=== PATIENT | male | born 1945 | race Caucasian/White ===

== ENCOUNTER 2017-12-10 11:29 | Emergency (ER) | payer MEDICARE, BC ==
[2017-12-10] MEDS ORDERED: SODIUM CHLORIDE 0.9% 1,000 ML IV STA (12:15)
[2017-12-10 12:56] LABS: Basophils % (A) 1 %; Eosinophils # (A) 0.2 k/uL (0-0.7); Eosinophils % (A) 2 %; HCT 43.8 % (39.0-53.0); HGB 14.5 gm/dL (13.0-17.5); Lymphocytes # (A) 1.8 k/uL (1.0-4.8); Lymphocytes % (A) 23 %; MCH 27.9 pg (25.0-35.0); MCV 84.4 fL (80.0-100.0); Mean Platelet Volume 7.4; Monocytes # (A) 0.5 k/uL (0-1.0); Monocytes % (A) 7 %; Neutrophils # (A) 5.2 k/uL (1.3-7.7); Neutrophils % (A) 66 %; Platelet Count 164 k/uL (150-450); RBC 5.19 m/uL (4.30-5.90); RDW 12.8 % (11.5-15.5); WBC 7.8 k/uL (3.8-10.6)
[2017-12-10 13:02] LABS: Albumin 4.7 g/dL (3.5-5.0); Calcium 9.8 mg/dL (8.4-10.2); Magnesium 2.3 mg/dL (1.6-2.3); Potassium 4.9 mmol/L (3.5-5.1); Total Bilirubin 0.6 mg/dL (0.2-1.3); Total Protein 7.9 g/dL (6.3-8.2)
[2017-12-10 13:09] LABS: D-Dimer 0.43 mg/L FEU (<0.60); INR 1.1 (<1.2); Partial Thromboplastin Time 26.1 sec (22.0-30.0); Prothrombin Time 10.8 sec (9.0-12.0)
[2017-12-10 13:14] LABS: Creatine Kinase 206 U/L (55-170)
--- NOTE | 2017-12-10 13:19 | XR ---
EXAMINATION TYPE: XR chest 2V DATE OF EXAM: 12/10/2017 HISTORY: Chest Pain. REFERENCE: NONE. FINDINGS: The lungs are overinflated. The lungs are clear. Pleural space are clear. Heart size is upp er limits of normal. IMPRESSION: COPD.
[2017-12-10 13:26] LABS: Creatine Kinase MB 1.5 ng/mL (0.0-2.4); Troponin I <0.012 ng/mL (0.000-0.034)
--- NOTE | 2017-12-10 13:27 | ED ---
General Adult HPI - General Chief complaint: Fall Stated complaint: left rib pain from fall Time Seen by Provider: 12/10/17 12:09 Source: patient Mode of arrival: ambulatory Limitations: no limitations - History of Present Illness Initial comments: 72 years old male with a history of hyperlipidemia and hypertension fell 2 days ago and he hurt his chest on the left side him a he was in pain for sometime min pain went away then he developed the chest pain today after sneezing he said it was 10 over 10 he is not complaining about pain in the abdomen he is now complaining about pain in the left upper quadrant area and pain is actually has resolved now he is not short of breath does hurt when he takes a deep breath. No headaches no neck stiffness left-sided chest pain fellow couple days ago no abdominal pain no pain over the spleen or over the liver the abdominal pain no frequency urgency dysuria no symptoms of TIA or CVA - Related Data Home Medications Medication Instructions Recorded Confirmed Aspirin 81 mg PO HS 12/19/14 12/10/17 Metoprolol Tartrate [Metoprolol 50 mg PO QAM 12/19/14 12/10/17 Tartrate] Simvastatin [Simvastatin] 40 mg PO HS 12/19/14 12/10/17 clonazePAM [Clonazepam] 0.5 mg PO HS PRN 12/19/14 12/10/17 Acetaminophen Tab [Tylenol Tab] 325 mg PO Q4H PRN 12/10/17 12/10/17 Metoprolol Tartrate [Lopressor] 25 mg PO HS 12/10/17 12/10/17 Previous Rx's Medication Instructions Recorded oxyCODONE HCL/ACETAMINOPHEN 1 tab PO Q8HR PRN #15 tab 12/10/17 [Percocet 7.5-325 mg] Allergies Allergy/AdvReac Type Severity Reaction Status Date / Time Penicillins Allergy Rash/Hives Verified 12/10/17 12:28 Review of Systems ROS Statement: Those systems with pertinent positive or pertinent negative responses have been documented in the HPI. ROS Other: All systems not noted in ROS Statement are negative. 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", CPAP SETTING AT 12 History of Any Multi-Drug Resistant Organisms: None Reported Past Surgical History: Heart Catheterization, Orthopedic Surgery, Tonsillectomy Additional Past Surgical History / Comment(s): PALATE AND DEVIATED SEPTUM SURGERY Past Anesthesia/Blood Transfusion Reactions: No Reported Reaction Past Psychological History: No Psychological Hx Reported Smoking Status: Former smoker Past Alcohol Use History: Occasional Past Drug Use History: None Reported - Past Family History Father Family Medical History: Cancer Additional Family Medical History / Comment(s): BLADDER Brother(s) Family Medical History: Cancer Additional Family Medical History / Comment(s): PANCREATIC AND KIDNEY General Exam - General Exam Comments Initial Comments: General: The patient is awake and alert, in no distress, and does not appear acutely ill. Skin: Skin is warm and dry and no rashes or lesions are noted. Eye: Pupils are equal, round and reactive to light, extra-ocular movements are intact; there is normal conjunctiva bilaterally. Ears, nose, mouth and throat: There are moist mucous membranes and no oral lesions. Neck: The neck is supple, there is no tenderness or JVD. Cardiovascular: There is a regular rate and rhythm. No murmur, rub or gallop is appreciated. Respiratory: To auscultation bilateral, no wheezing no rhonchi no distress respiratory silver noticed Gastrointestinal: Soft, non-distended, non-tender abdomen without masses or organomegaly noted. There is no rebound or guarding present. Bowel sounds are unremarkable. Back: There is no tenderness to palpation in the midline. There is no obvious deformity. Musculoskeletal: Normal ROM, no tenderness, There is no pedal edema. There is no calf tenderness or swelling. No cords were appreciated. Neurological: CN II-XII intact, Cranial nerves III through XII are intact. There are no obvious motor or sensory deficits. Coordination appears grossly intact. Speech is normal. Psychiatric: Cooperative, appropriate mood & affect, normal judgment. Limitations: no limitations Course Vital Signs 12/10/17 12/10/17 12/10/17 11:53 12:17 12:40 Temperature 98.3 F Pulse Rate 57 L Respiratory 20 20 20 Rate Blood Pressure 158/72 O2 Sat by Pulse 94 L Oximetry 12/10/17 13:00 Temperature Pulse Rate 57 L Respiratory 20 Rate Blood Pressure 140/77 O2 Sat by Pulse 98 Oximetry Is reassessed, d-dimer, troponin, EKG are all unremarkable chest x-ray didn't show any displaced fracture of the abdomen is suspect nondisplaced injury or bruise to the rehab he was advised not to do any heavy lifting pushing pulling for the next few days and he be gone home on a Percocet for 3-4 days EKG Findings - EKG Comments: EKG Findings:: KG is normal sinus rhythm occasional PVC noticed ventricular rate is 64 AK interval is 164 QRS duration is 66 QT/QTc is 340/447 review of this EKG noticed some PVCs no ST elevation or ST depression noticed Medical Decision Making - Lab Data Result diagrams: 12/10/17 12:35 12/10/17 12:35 Lab Results 12/10/17 12/10/17 12/10/17 Range/Units 12:35 12:35 12:35 WBC 7.8 (3.8-10.6) k/uL RBC 5.19 (4.30-5.90) m/uL Hgb 14.5 (13.0-17.5) gm/dL Hct 43.8 (39.0-53.0) % MCV 84.4 (80.0-100.0) fL MCH 27.9 (25.0-35.0) pg MCHC 33.0 (31.0-37.0) g/dL RDW 12.8 (11.5-15.5) % Plt Count 164 (150-450) k/uL Neutrophils % 66 % Lymphocytes % 23 % Monocytes % 7 % Eosinophils % 2 % Basophils % 1 % Neutrophils # 5.2 (1.3-7.7) k/uL Lymphocytes # 1.8 (1.0-4.8) k/uL Monocytes # 0.5 (0-1.0) k/uL Eosinophils # 0.2 (0-0.7) k/uL Basophils # 0.0 (0-0.2) k/uL PT (9.0-12.0) sec INR (<1.2) APTT (22.0-30.0) sec D-Dimer (<0.60) mg/L FEU Sodium 143 (137-145) mmol/L Potassium 4.9 (3.5-5.1) mmol/L Chloride 103 (98-107) mmol/L Carbon Dioxide 27 (22-30) mmol/L Anion Gap 13 mmol/L BUN 23 H (9-20) mg/dL Creatinine 1.17 (0.66-1.25) mg/dL Est GFR (CKD-EPI)AfAm 72 (>60 ml/min/1.73 sqM) Est GFR (CKD-EPI)NonAf 62 (>60 ml/min/1.73 sqM) Glucose 91 (74-99) mg/dL Calcium 9.8 (8.4-10.2) mg/dL Magnesium 2.3 (1.6-2.3) mg/dL Total Bilirubin 0.6 (0.2-1.3) mg/dL AST 28 (17-59) U/L ALT 28 (21-72) U/L Alkaline Phosphatase 73 (38-126) U/L Total Creatine Kinase 206 H (55-170) U/L CK-MB (CK-2) 1.5 (0.0-2.4) ng/mL CK-MB (CK-2) Rel Index 0.7 Troponin I <0.012 (0.000-0.034) ng/mL Total Protein 7.9 (6.3-8.2) g/dL Albumin 4.7 (3.5-5.0) g/dL 12/10/17 Range/Units 12:35 WBC (3.8-10.6) k/uL RBC (4.30-5.90) m/uL Hgb (13.0-17.5) gm/dL Hct (39.0-53.0) % MCV (80.0-100.0) fL MCH (25.0-35.0) pg MCHC (31.0-37.0) g/dL RDW (11.5-15.5) % Plt Count (150-450) k/uL Neutrophils % % Lymphocytes % % Monocytes % % Eosinophils % % Basophils % % Neutrophils # (1.3-7.7) k/uL Lymphocytes # (1.0-4.8) k/uL Monocytes # (0-1.0) k/uL Eosinophils # (0-0.7) k/uL Basophils # (0-0.2) k/uL PT 10.8 (9.0-12.0) sec INR 1.1 (<1.2) APTT 26.1 (22.0-30.0) sec D-Dimer 0.43 (<0.60) mg/L FEU Sodium (137-145) mmol/L Potassium (3.5-5.1) mmol/L Chloride (98-107) mmol/L Carbon Dioxide (22-30) mmol/L Anion Gap mmol/L BUN (9-20) mg/dL Creatinine (0.66-1.25) mg/dL Est GFR (CKD-EPI)AfAm (>60 ml/min/1.73 sqM) Est GFR (CKD-EPI)NonAf (>60 ml/min/1.73 sqM) Glucose (74-99) mg/dL Calcium (8.4-10.2) mg/dL Magnesium (1.6-2.3) mg/dL Total Bilirubin (0.2-1.3) mg/dL AST (17-59) U/L ALT (21-72) U/L Alkaline Phosphatase (38-126) U/L Total Creatine Kinase (55-170) U/L CK-MB (CK-2) (0.0-2.4) ng/mL CK-MB (CK-2) Rel Index Troponin I (0.000-0.034) ng/mL Total Protein (6.3-8.2) g/dL Albumin (3.5-5.0) g/dL Disposition Clinical Impression: Chest wall pain Disposition: HOME SELF-CARE Instructions: Costochondritis (ED) Prescriptions: oxyCODONE HCL/ACETAMINOPHEN [Percocet 7.5-325 mg] 1 tab PO Q8HR PRN #15 tab PRN Reason: Pain Referrals: Brook Short MD [Primary Care Provider] - 1-2 days
[2017-12-10 14:46] VITALS: BP 149/71; PULSE 60; RESP 16; TEMP 96.9
== END 2017-12-10 14:45 | disposition home or self-care (01) ==
LOC: EC 11:29
DX: R07.89 Other chest pain (principal); R06.7 Sneezing; E78.5 Hyperlipidemia, unspecified; I10 Essential (primary) hypertension; G47.30 Sleep apnea, unspecified; Z99.89 Dependence on other enabling machines and devices; Z87.891 Personal history of nicotine dependence; Z79.82 Long term (current) use of aspirin; Z79.899 Other long term (current) drug therapy; Z88.0 Allergy status to penicillin; W01.0XXA Fall on same level from slipping, tripping and stumbling without subsequent striking against object, initial encounter; Y92.89 Other specified places as the place of occurrence of the external cause
CPT/HCPCS: 36415; 71046; 80053; 82550; 82553; 83735; 84484; 85025; 85379; 85610; 85730; 93005; 96360; 96361; 99284

== ENCOUNTER → 2018-12-21 | Outpatient (CLI) | payer MEDICARE, BC ==
--- NOTE | 2018-12-21 09:56 | US ---
EXAMINATION TYPE: US abdomen complete DATE OF EXAM: 12/21/2018 COMPARISON: NONE CLINICAL HISTORY: Z82.49 Family history of AAA. EXAM MEASUREMENTS: Liver Length: 15.4 cm Gallbladder Wall: 0.3 cm CBD: 0.2 cm Spleen: 11.6 cm Right Kidney: 11.5 x 4.6 x 4.8 cm Left Kidney: 10.8 x 5.6 x 5.1 cm Extensive midline bowel gas. Pancreas: Obscured by bowel gas Liver: portion of left lobe obscured by overlying bowel gas Gallbladder: wnl, somewhat obscured by overlying bowel gas Evidence for sonographic Ramos's sign: no CBD: wnl Spleen: wnl Right Kidney: No hydronephrosis or masses seen Left Kidney: Superior pole obscured by bowel gas Upper IVC: wnl Abd Aorta: no AAA, appears wnl IMPRESSION: Somewhat Limited exam secondary to overlying bowel gas demonstrates no definite acute pro cess.
== END | disposition home or self-care (01) ==
LOC: RADUSWWP 08:41
PROVIDERS: ATTEND Internal Medicine
DX: Z13.6 Encounter for screening for cardiovascular disorders (principal); Z82.49 Family history of ischemic heart disease and other diseases of the circulatory system
CPT/HCPCS: 76700

== ENCOUNTER 2019-10-29 13:21 | Emergency (ER) | payer MEDICARE, BC ==
[2019-10-29 13:29] VITALS: BP 143/80; PULSE 71; TEMP 97.8
[2019-10-29] MEDS ORDERED: DIPH,PERTUS(ACELL)TETVAC-LF 0.5 ML VIAL IM ONE (14:00)
[2019-10-29] MEDS ORDERED: LIDOCAINE 1% INJ 10MG/ML (20 ML MDV) SQ ONE (14:00)
--- NOTE | 2019-10-29 15:26 | CT ---
EXAMINATION TYPE: CT facial bones wo con DATE OF EXAM: 10/29/2019 COMPARISON: Pain nasal bone HISTORY: Nasal injury today with laceration CT DLP: 540.3 mGycm Automated exposure control for dose reduction was used. TECHNIQUE: CT scan of the sinuses is performed without contrast, axial images are obtained, coronal r eformatted images are also reviewed. FINDINGS: The paranasal sinuses including the frontal, ethmoid, sphenoid, and maxillary sinuses bila terally are well-aerated without abnormal opacification. The ostiomeatal complex is patent bilateral ly on the coronal images. Visualized portion of mastoid air cells show no abnormal opacification. The globes are intact bilate rally. Hypertrophic change of the vertebral column noted. There appears to be a nasal bone fracture with soft tissue edema. There is displacement of the latera l nasal bones on the right and a hairline fracture on the left. Correlation with a lateral view could BE obtained to assess the degree of depression. IMPRESSION: 1. Displaced nasal bone fracture with soft tissue edema.
[2019-10-29] MEDS ORDERED: ceFAZolin 1,000 MG VIAL (IM USE) IM STA (15:35)
--- NOTE | 2019-10-29 15:38 | ED ---
Wound/Laceration HPI - General Source: patient Mode of arrival: ambulatory Limitations: no limitations <Nisha Okeefe - Last Filed: 10/29/19 15:47> <Sloan Mendez - Last Filed: 10/29/19 16:09> - General Chief Complaint: Wound/Laceration Stated Complaint: nose injury Time Seen by Provider: 10/29/19 13:41 - History of Present Illness Initial Comments: 74-year-old male presenting today for chief complaint of fall with nasal injury. Patient states that he was in the [place] using a chainsaw to cut wood when he tripped over a branch falling onto the chain saw. He states that the chain was not moving. Patient sates he sustained a laceration to his nose. Patient states his nose is now swollen and tender he states he had nosebleed at the time. Patient states that has since subsided. Patient is concerned he may need laceration repair and have a possible fracture presents emergency department for further evaluation she denies any injury to the head directly, pain in the neck upper extremities lower extremities abdomen chest or back. Patient states the only area of tenderness is the nose. Patient unsure of his last tetanus. Remaining ROS (-). Denies nay other area of injury or complaints. (Nisha Okeefe) - Related Data Home Medications Medication Instructions Recorded Confirmed Aspirin 81 mg PO HS 12/19/14 12/10/17 Metoprolol Tartrate 50 mg PO QAM 12/19/14 12/10/17 Simvastatin 40 mg PO HS 12/19/14 12/10/17 clonazePAM [Clonazepam] 0.5 mg PO HS PRN 12/19/14 12/10/17 Acetaminophen Tab [Tylenol Tab] 325 mg PO Q4H PRN 12/10/17 12/10/17 Metoprolol Tartrate [Lopressor] 25 mg PO HS 12/10/17 12/10/17 Previous Rx's Medication Instructions Recorded oxyCODONE HCL/ACETAMINOPHEN 1 tab PO Q8HR PRN #15 tab 12/10/17 [Percocet 7.5-325 mg] Cephalexin [Keflex] 500 mg PO Q6HR 7 Days #28 cap 10/29/19 Allergies Allergy/AdvReac Type Severity Reaction Status Date / Time Penicillins Allergy Rash/Hives Verified 10/29/19 13:28 Review of Systems ROS Other: All systems not noted in ROS Statement are negative. <Nisha Okeefe - Last Filed: 10/29/19 15:47> ROS Other: All systems not noted in ROS Statement are negative. <Sloan Mendez - Last Filed: 10/29/19 16:09> ROS Statement: Those systems with pertinent positive or pertinent negative responses have been documented in the HPI. 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", CPAP SETTING AT 12 History of Any Multi-Drug Resistant Organisms: None Reported Past Surgical History: Heart Catheterization, Orthopedic Surgery, Tonsillectomy Additional Past Surgical History / Comment(s): PALATE AND DEVIATED SEPTUM SURGERY Past Anesthesia/Blood Transfusion Reactions: No Reported Reaction Past Psychological History: No Psychological Hx Reported Smoking Status: Former smoker Past Alcohol Use History: Daily Past Drug Use History: None Reported - Past Family History Father Family Medical History: Cancer Additional Family Medical History / Comment(s): BLADDER Brother(s) Family Medical History: Cancer Additional Family Medical History / Comment(s): PANCREATIC AND KIDNEY <Nisha Okeefe - Last Filed: 10/29/19 15:47> General Exam Limitations: no limitations <Nisha Okeefe - Last Filed: 10/29/19 15:47> - General Exam Comments Initial Comments: General: The patient is awake and alert, in no distress Eye: +3 mm pupils are equal, round and reactive to light, extra-ocular mov ements are intact. No nystagmus. There is normal conjunctiva bilaterally. No signs of icterus. Ears, nose, mouth and throat: There are moist mucous membranes and no oral lesions. No nasal hematoma. No raccoon or Bynum sign. 2 cm irregular laceration of nasal bridge. Neck: The neck is supple, there is no tenderness or JVD. No midline or paravertebral tenderness to the cervical thoracic or lumbar spine. Cardiovascular: There is a regular rate and rhythm. No murmur, rub or gallop is appreciated. Respiratory: Lungs are clear to auscultation, respirations are non-labored, breath sounds are equal. No wheezes, stridor, rales, or rhonchi. Gastrointestinal: Soft, non-distended, non-tender abdomen without masses or organomegaly noted. There is no rebound or guarding present. Musculoskeletal: Normal ROM, no tenderness. Strength 5/5. Sensation intact. Radial pulses equal bilaterally 2+. Neurological: A&O x 3. CN II-XII intact, There are no obvious motor or sensory deficits. Coordination appears grossly intact. Speech is normal. Skin: Skin is warm and dry and no rashes or lesions are noted. Psychiatric: Cooperative, appropriate mood & affect, normal judgment. (Nisha Okeefe) Course <Sloan Mendez - Last Filed: 10/29/19 16:09> Vital Signs 10/29/19 10/29/19 13:26 16:03 Temperature 97.8 F Pulse Rate 71 Respiratory 16 20 Rate Blood Pressure 143/80 O2 Sat by Pulse 98 Oximetry - Reevaluation(s) Reevaluation #1: 10/29/19 16:09 PA supervision: I pursued a [id number] evaluation the patient did fall onto the bar of his chainsaw this a nasal laceration. Patient denies any other injuries that time he is awake alert oriented x3 denies any loss of consciousness. The nasal laceration was repaired by the physician switchboard operator assistant and does appear to be intact with no evidence of active bleeding at this time. I did review the workup and do agree with the assessment and plan. Patient and his are in agreement. Patient will be discharged (Sloan Mendez) Medical Decision Making <Nisha Okeefe - Last Filed: 10/29/19 15:47> - Medical Decision Making 74yo male presenting today for chief complaint of nasal laceration. Laceration was repaired after extensive irrigation expiration and cleansed with iodine. Wound edges approximate well. The distal aspect laceration was more of an a brasion than laceration. Patient has no exposure of bone. No septal hematoma was noted. Patient has no headache dizziness or neurological complaints no focal neurological deficits. CT was reviewed revealing a displaced nasal bone fracture. No obvious septal deviation on exam. Patient tetanus was updated. Patient be placed on antibiotics and given ENT follow-up. Patient is agreeable to care plan and discharge at this time. Dr. Mendez was agreeable to care plan and discharge at this time. (Nisha Okeefe) Disposition Is patient prescribed a controlled substance at d/c from ED?: No Time of Disposition: 15:37 <Nisha Okeefe Beck - Last Filed: 10/29/19 15:47> <Sloan Mendez - Last Filed: 10/29/19 16:09> Clinical Impression: Nasal fracture, Nasal laceration, Fall Disposition: HOME SELF-CARE Condition: Good Instructions (If sedation given, give patient instructions): Nasal Fracture (ED), Facial Laceration (ED) Additional Instructions: Please use medication as discussed. Please follow-up with ENT in the next 2-3 days, please return for suture removal in 5-6 days. If signs of infection discussed, redness, drainage, increasing pain, please return to the ER. Please return to emergency room if the symptoms increase or worsen or for any other concerns. Prescriptions: Cephalexin [Keflex] 500 mg PO Q6HR 7 Days #28 cap Referrals: Brook Short MD [Primary Care Provider] - 1-2 days Royer Mack DO [Doctor of Osteopathic Medicine] - 1-2 days
[2019-10-29 16:04] VITALS: RESP 20
== END 2019-10-29 16:03 | disposition home or self-care (01) ==
LOC: EC 13:21
DX: S02.2XXB Fracture of nasal bones, initial encounter for open fracture (principal); E78.5 Hyperlipidemia, unspecified; I10 Essential (primary) hypertension; G47.30 Sleep apnea, unspecified; Z23 Encounter for immunization; Z79.82 Long term (current) use of aspirin; Z79.899 Other long term (current) drug therapy; Z87.891 Personal history of nicotine dependence; Z88.0 Allergy status to penicillin; Z99.89 Dependence on other enabling machines and devices; Z95.5 Presence of coronary angioplasty implant and graft; Z98.890 Other specified postprocedural states; W31.2XXA Contact with powered woodworking and forming machines, initial encounter; Y93.89 Activity, other specified
CPT/HCPCS: 70486; 90715; 99283; 96372; 90471; 12011; J0690; J2001

== ENCOUNTER → 2021-03-02 | Outpatient (CLI) | payer MEDICARE, BC ==
--- NOTE | 2021-03-02 10:20 | US ---
EXAMINATION TYPE: US duplex aorta DATE OF EXAM: 03/02/2021 COMPARISON: NONE CLINICAL HISTORY: I71.4 Abdominal aortic aneurysm, without rupture. father and both brothers had AAA with surgical repair. All prior imaging shows no AAA on this patient. EXAM MEASUREMENTS: Abdominal Aorta: Proximal: area obscured by bowel gas Mid: 2.2 x 2.3cm Distal: 1.8 x 2.0cm Bifurcation: Rt = 1.3cm Lt = 1.1cm Proximal portion obscured by bowel gas but normal caliper aorta seen through bifurcation IMPRESSION: No definite aortic aneurysm on this limited examination.
== END | disposition home or self-care (01) ==
LOC: RADUSWWP 08:54
PROVIDERS: ATTEND Internal Medicine
DX: I71.4 Abdominal aortic aneurysm, without rupture (principal)
CPT/HCPCS: 93979

== ENCOUNTER → 2023-08-16 | Outpatient (CLI) | payer MEDICARE, BC ==
[2023-08-16 16:51] LABS: BUN/Creat Ratio 16.62 Ratio (12.00-20.00); Blood Urea Nitrogen 21.6 mg/dL (9.0-27.0); Calcium 9.6 mg/dL (8.7-10.3); Carbon Dioxide 26.7 mmol/L (21.6-31.8); Chloride 107 mmol/L (96-109); Glucose 92 mg/dL (70-110); Potassium 4.7 mmol/L (3.5-5.5); Sodium 143 mmol/L (135-145)
== END | disposition home or self-care (01) ==
LOC: LABWHC1 11:38
PROVIDERS: ATTEND Internal Medicine Nephrology
DX: N18.30 Chronic kidney disease, stage 3 unspecified (principal)
CPT/HCPCS: 36415; 80048

== ENCOUNTER → 2023-12-20 | Outpatient (CLI) | payer MEDICARE, BC ==
[2023-12-20 16:10] LABS: Appearance,Urine Clear (Clear); Bilirubin,Urine Negative (Negative); Blood,Urine Negative (Negative); Color,Urine Yellow (Yellow); Ketones,Urine Negative (Negative); Nitrite,Urine Negative (Negative)
[2023-12-20 16:18] LABS: Basophils # (A) 0.03 X 10*3/uL (0.00-0.10); Basophils % (A) 0.5 %; Eosinophils # (A) 0.23 X 10*3/uL (0.04-0.35); Eosinophils % (A) 4.1 %; HCT 44.7 % (39.6-50.0); HGB 14.3 g/dL (13.0-17.0); Lymphocytes # (A) 1.57 X 10*3/uL (0.90-5.00); Lymphocytes % (A) 28.2 %; MCH 29.1 pg (27.0-32.0); MCV 90.9 FL (80.0-97.0); Monocytes # (A) 0.51 X 10*3/uL (0.20-1.00); Monocytes % (A) 9.2 %; NRBC Per 100 WBC 0 X 10*3/uL (0.00-0.01); Neutrophils # (A) 3.21 X 10*3/uL (1.80-7.70); Neutrophils % (A) 57.6 %; Platelet Count 155 X 10*3/uL (140-440); RBC 4.92 X 10*6/uL (4.40-5.60); RDW 12.5 % (11.5-14.5); WBC 5.57 X 10*3/uL (4.50-10.00)
[2023-12-20 16:35] LABS: % Iron Saturation 35.44 (15.00-50.00); Albumin 4.6 g/dL (3.8-4.9); BUN/Creat Ratio 15.07 Ratio (12.00-20.00); Blood Urea Nitrogen 21.1 mg/dL (9.0-27.0); Calcium 9.9 mg/dL (8.7-10.3); Carbon Dioxide 26.2 mmol/L (21.6-31.8); Chloride 104 mmol/L (96-109); Glucose 102 mg/dL (70-110); Iron 112 UG/DL (65-175); Magnesium 2.1 mg/dL (1.5-2.4); Phosphorus 2.7 mg/dL (2.4-5.1); Potassium 4.5 mmol/L (3.5-5.5); Sodium 140 mmol/L (135-145); Total Iron Binding Capacity 316 UG/DL (228-460); Uric Acid 6.8 mg/dL (3.7-8.7)
== END | disposition home or self-care (01) ==
LOC: LABWHC1 09:41
PROVIDERS: ATTEND Internal Medicine Nephrology
DX: N25.81 Secondary hyperparathyroidism of renal origin (principal); N18.30 Chronic kidney disease, stage 3 unspecified; D63.1 Anemia in chronic kidney disease; E55.9 Vitamin D deficiency, unspecified; M10.9 Gout, unspecified; N39.0 Urinary tract infection, site not specified; R80.9 Proteinuria, unspecified
CPT/HCPCS: 36415; 80048; 81003; 82040; 82043; 82306; 82570; 82728; 83540; 83550; 83735; 83970; 84100; 84550; 85025; 86334; 86335

== ENCOUNTER → 2024-01-02 | Outpatient (CLI) | payer MEDICARE, BC ==
[2024-01-02 09:37] LABS: HCT 45.4 % (39.0-53.0); HGB 14.7 gm/dL (13.0-17.5); MCH 29.5 pg (25.0-35.0); MCHC 32.4 g/dL (31.0-37.0); MCV 90.9 fL (80.0-100.0); Mean Platelet Volume 8.2; Platelet Count 160 k/uL (150-450); RBC 4.99 m/uL (4.30-5.90); RDW 12.9 % (11.5-15.5); WBC 6.5 k/uL (3.8-10.6)
[2024-01-02 09:45] LABS: African American GFR (CKD) 64 (>60 ml/min/1.73 sqM); Anion Gap 8 mmol/L; Blood Urea Nitrogen 23 mg/dL (9-20); Carbon Dioxide 22 mmol/L (22-30); Chloride 112 mmol/L (98-107); Non-African American GFR(CKD) 56 (>60 ml/min/1.73 sqM); Potassium 4.2 mmol/L (3.5-5.1); Sodium 142 mmol/L (137-145)
== END | disposition home or self-care (01) ==
LOC: LABPAT 08:54
PROVIDERS: ATTEND Internal Medicine Interventional Cardiology
DX: Z01.812 Encounter for preprocedural laboratory examination (principal); I47.20 Ventricular tachycardia, unspecified; R94.39 Abnormal result of other cardiovascular function study
CPT/HCPCS: 36415; 80051; 82565; 84520; 85027

== ENCOUNTER 2024-01-03 05:42 | Day surgery (SDC) | payer MEDICARE, BC ==
[2024-01-03] MEDS ORDERED: ALPRAZolam 0.25 MG TAB PO PRN (05:57)
[2024-01-03] MEDS ORDERED: ALPRAZolam 0.5 MG TAB PO PRN (05:57)
[2024-01-03] MEDS ORDERED: NITROGLYCERIN SL TABS 0.4 MG TAB SUBLINGUAL PRN (05:57)
[2024-01-03] MEDS: SODIUM CHLORIDE 0.9% 1,000 ML in EMPTY BAG 1 BAG IV SCH (06:28)
[2024-01-03 06:41] VITALS: RESP 18; TEMP 97.7
[2024-01-03] MEDS ORDERED: ASPIRIN 325 MG TAB PO ONE (07:00)
[2024-01-03] MEDS: MIDAZOLAM 2 MG/2 ML VIAL IVP ONE (07:35)
[2024-01-03] MEDS: LIDOCAINE 1% INJ 10MG/ML (20 ML MDV) SQ ONE (07:37)
[2024-01-03] MEDS: fentaNYL (PF) 50 MCG/ML 2 ML AMP IVP ONE (07:38)
[2024-01-03] MEDS: VERAPAMIL SYRINGE (5 MG/10 ML) INTRAARTER ONE (07:39)
[2024-01-03] MEDS: HEPARIN SODIUM 1,000 UN/ML (10ML VL) IV ONE (07:39)
[2024-01-03] MEDS: IOPAMIDOL-370 100ML BTL INJ ONE (07:53)
[2024-01-03] MEDS ORDERED: RX INFO: IV CONTRAST WAS GIVEN 1 EACH MISC MISCELLANE PRN (08:04)
[2024-01-03] MEDS ORDERED: SODIUM CHLORIDE 0.9% 1,000 ML IV SCH ×2 (08:15→11:45)
--- NOTE | 2024-01-03 08:32 | CC ---
CARDIAC CATHETERIZATION REPORT PROCEDURES PERFORMED: Left heart catheterization, coronary angiography. PERFORMED BY: Dr. Heather Couch. ANESTHESIA: Moderate conscious sedation time was 18 minutes. Patient was administered Versed and fentanyl. Oxygen saturation, hemodynamics, and EKG were monitored closely. CLINICAL INFORMATION: Mr. Salvatore Bauer is a 78-year-old gentleman with a history of hypertension and hyperlipidemia who has remote history of neurocardiogenic syncope, recently had another episode of neurocardiogenic syncope type picture when he passed out completely and subsequent event monitor revealed several runs of ventricular tachycardia, nonsustained up to 12 beats in a row. He is also scheduled for the tilt test on the . He had a Lexiscan stress test, which revealed evidence of a reversible inferior wall defect with a fixed component and preserved ejection fraction. In view of this, he was advised to have a cardiac catheterization to rule out obstructive CAD. PROCEDURE NOTE: Under local anesthesia and strict aseptic precautions, a 6-Kenyan introducer was placed in the right radial artery. Using a 3.5 left and 4.0 right Precious catheters, I performed coronary angiography. The LV-gram was not performed. The same right catheter was used to check LV pressures. The sheath was taken out and TR band applied as per protocol. Saturation of the fingers of the right hand was 94%. The patient tolerated procedure well without complications. CARDIAC CATHETERIZATION FINDINGS: The left ventricular end-diastolic pressure was 10 mmHg without any gradient across aortic valve. CORONARY ANGIOGRAPHY FINDINGS: Right coronary artery is a dominant vessel at the junction of proximal and middle one third, there is about 35% to 40% narrowing after which the caliber improves and distally the vessel bifurcates into PDA and PLV and supplies a sizable amount of myocardium. There is no significant disease in the RCA other than the 35% to 40% lesion located in the proximal one third, eccentric in nature. Left Main Coronary Artery: This is a long patent vessel, no significant disease, bifurcates into LAD and circumflex. Left Anterior Descending Coronary Artery: Good caliber vessel, extends along the anterior wall, gives off septal and diagonal branches, runs all the way to the apex, has minor irregularities, no significant disease. Left Posterior Circumflex Coronary Artery: This vessel gives off a high obtuse marginal, almost looks like a ramus, has no significant disease and then after that, proximal circumflex has about a 35% narrowing. Then the caliber improves, and distally it gives off posterolateral branch and minor irregularities, no significant disease. FINAL IMPRESSION: This patient has a right dominant system, has a 40% proximal/mid RCA disease. Dominant vessel distal branches are free of significant disease. Normal filling pressures, no gradient. Circumflex has a 35% proximal lesion, nondominant. LAD has no significant disease. RECOMMENDATIONS: Continue on medical therapy with risk factor modification advised. Patient will have a tilt test on Tuesday. An echocardiogram will be performed today and will be seen by Dr. Flores as well. MMODL / IJN: [id number] /
[2024-01-03] MEDS: SODIUM CHLORIDE 0.9% 500 ML 500 ML IV ONE (13:00)
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
[2024-01-03 16:27] VITALS: BP 137/64; PULSE 64
--- NOTE | 2024-01-03 18:29 | P.EPPROC ---
- EP Procedure Note Electrophysiology Procedure Note: Diagnosis Recurrent syncope while sitting Twelve-lead EKG shows sinus factors and normal ME narrow QRS no QRS fractionation Frequent PVCs originating from the lateral wall LV base Event monitor shows nonsustained VT but the morphology is different from the PVCs Tilt table test per protocol Baseline blood pressure 150/71 mmHg, baseline heart rate 57 beats a minute patient was tilted upright and angle of 70 degrees per protocol No change in heart rate or blood pressure No evidence for neurocardiogenic syncope Impression 12Lead EKG EKG with PVCs originating from the base of the left ventricle, lateral wall Normal heart rate and blood pressure response to upright tilting
--- NOTE | 2024-01-03 18:44 | CA ---
Transthoracic Echo Report Name: Salvatore Bauer Age: 78 Gender: M : 1945 Exam Date: 01/03/2024 13:28 Exam Location: [facility] Ht (in): 72 Wt (lb): 242 Ordering Physician: Violeta Couch MD ([id number]) Attending/Referring Phys: Flower Picker Sadaf Rosenberg RDCS Procedure CPT: Indications: LV Function at wall motion MV Regurg Cardiac Hx: Technical Quality: Good Contrast 1: Total Dose (mL): Contrast 2: Total Dose (mL): MEASUREMENTS (Male / Female) Normal Values 2D ECHO LV Diastolic Diameter PLAX 4.9 cm 4.2 - 5.9 / 3.9 - 5.3 cm LV Systolic Diameter PLAX 3.3 cm IVS Diastolic Thickness 1.1 cm 0.6 - 1.0 / 0.6 - 0.9 cm LVPW Diastolic Thickness 1.1 cm 0.6 - 1.0 / 0.6 - 0.9 cm LV Relative Wall Thickness 0.4 RV Internal Dim ED PLAX 3.6 cm LA Systolic Diameter LX 4.4 cm 3.0 - 4.0 / 2.7 - 3.8 cm LV Diastolic Volume MOD BP 87.0 cm??? 67 - 155 / 56 - 104 cm??? LV Systolic Volume MOD BP 40.2 cm??? - 58 / 19 - 49 cm??? LV Ejection Fraction MOD BP 53.8 % >= 55 % LV Cardiac Index MOD BP 1211.7 cm???/min???m??? LV Diastolic Volume MOD 4C 105.7 cm??? LV Systolic Volume MOD 4C 42.2 cm??? LV Ejection Fraction MOD 4C 60.1 % LV Cardiac Index MOD 4C 1646.5 cm???/min???m??? LV Diastolic Length 4C 8.9 cm LV Systolic Length 4C 8.1 cm LV Diastolic Volume MOD 2C 70.1 cm??? LV Systolic Volume MOD 2C 37.1 cm??? LV Ejection Fraction MOD 2C 47.0 % LV Cardiac Index MOD 2C 853.3 cm???/min???m??? LV Diastolic Length 2C 9.2 cm LV Systolic Length 2C 7.7 cm LA Volume 92.9 cm??? 18 - 58 / 22 - 52 cm??? LA Volume Index 38.8 cm???/m??? 16 - 28 cm???/m??? M-MODE Aortic Root Diameter MM 3.4 cm MV E Point Septal Separation 0.9 cm AV Cusp Separation MM 1.8 cm DOPPLER AV Peak Velocity 181.7 cm/s AV Peak Gradient 13.2 mmHg MV Area PHT 2.6 cm??? Mitral E Point Velocity 85.1 cm/s Mitral A Point Velocity 93.9 cm/s Mitral E to A Ratio 0.9 MV Deceleration Time 292.7 ms TR Peak Velocity 205.9 cm/s TR Peak Gradient 17.0 mmHg Right Ventricular Systolic Press 22.0 mmHg FINDINGS Left Ventricle Left ventricular ejection fraction is estimated at 50-55 %. Left ventricular cavity size normal. Left ventricular wall thickness normal. No obvious regional wall motion abnormalities. . Right Ventricle Normal right ventricular size. Right ventricular systolic pressure within normal limits. Right Atrium Normal right atrial size. Left Atrium Mildly increased left atrial diameter. Moderately increased left atrial volume. Mildly increased left atrial area. Mitral Valve Structurally normal mitral valve. No mitral stenosis, regurgitation or prolapse. Aortic Valve Trileaflet aortic valve. No aortic valve stenosis or regurgitation. Tricuspid Valve Structurally normal tricuspid valve. Mild tricuspid regurgitation. Pulmonic Valve Structurally normal pulmonic valve. No pulmonic regurgitation. Pericardium No pericardial effusion. Aorta Normal size aortic root and proximal ascending aorta. CONCLUSIONS Normal LV size and systolic function No regional wall motion abnormalities Normal RV size and function mild left atrial enlargement Previewed by: Dr. Fermin Flores MD (Electronically Signed) Final Date: 03 January 2024 18:43
== END 2024-01-03 16:10 | disposition home or self-care (01) ==
LOC: CATHCVL 05:42
PROVIDERS: ATTEND Internal Medicine Interventional Cardiology
DX: I07.1 Rheumatic tricuspid insufficiency (principal); I45.10 Unspecified right bundle-branch block; G47.33 Obstructive sleep apnea (adult) (pediatric); E78.5 Hyperlipidemia, unspecified; Z79.899 Other long term (current) drug therapy; Z88.0 Allergy status to penicillin
CPT/HCPCS: 93306; 93458; 93660; C1769; C1894; J2250; J2001; J3010; J1644; Q9967

== ENCOUNTER 2024-03-28 06:41 | Day surgery (SDC) | payer MEDICARE, BC ==
[2024-03-28] MEDS ORDERED: SODIUM CHLORIDE 0.9% 1,000 ML IV SCH (06:55)
[2024-03-28] MEDS: SODIUM CHLORIDE 0.9% 500 ML 500 ML IV ONE (07:31)
[2024-03-28 07:37] VITALS: BP 147/75; PULSE 60; RESP 16; TEMP 97.7
[2024-03-28] MEDS ORDERED: LIDOCAINE 1% INJ 10MG/ML (20 ML MDV) ONE (08:21)
[2024-03-28] MEDS ORDERED: fentaNYL (PF) 50 MCG/ML 2 ML AMP ONE (08:23)
[2024-03-28] MEDS: LIDOCAINE 1% INJ 10MG/ML (20 ML MDV) SQ ONE (08:54)
--- NOTE | 2024-03-28 09:08 | P.EPPROC ---
- EP Procedure Note Electrophysiology Procedure Note: Loop monitor implant for local anesthesia Primary physicians: Dr. Short Evaluator: Dr. Flores Indication: Syncope, history of frequent PVCs nonsustained VT Patient was brought to the EP lab in a fasting state. Written informed consent was obtained prior to the procedure. The left pectoral area was prepped and draped per protocol. Intravenous antibiotic was administered preoperatively. A subcutaneous Loop monitor was implanted successfully and the wound was closed per protocol. The device was programmed to detect significant juarez- arrhythmic and tachy-arrhythmic events, per protocol. Device and programming details: Syncope protocol
== END 2024-03-28 09:38 | disposition home or self-care (01) ==
LOC: CATHEP 06:41
PROVIDERS: ATTEND Internal Medicine Clinical Cardiac Electrophysiology
DX: R55 Syncope and collapse (principal); I10 Essential (primary) hypertension; G47.33 Obstructive sleep apnea (adult) (pediatric); I25.10 Atherosclerotic heart disease of native coronary artery without angina pectoris; I49.3 Ventricular premature depolarization; I47.10 Supraventricular tachycardia, unspecified; Z88.0 Allergy status to penicillin; Z79.899 Other long term (current) drug therapy
CPT/HCPCS: 33285; C1764; J0690; J2001

== ENCOUNTER → 2024-12-20 | Outpatient (CLI) | payer MEDICARE, BC ==
[2024-12-20 15:54] LABS: Blood Urea Nitrogen 24.9 mg/dL (9.0-27.0); Carbon Dioxide 23.5 mmol/L (21.6-31.8); Chloride 108 mmol/L (96-109); Glucose 92 mg/dL (70-110); Magnesium 2.1 mg/dL (1.5-2.4); Phosphorus 3.4 mg/dL (2.4-5.1); Sodium 145 mmol/L (135-145)
[2024-12-20 15:55] LABS: % Iron Saturation 29.45 (15.00-50.00); Calcium 9.9 mg/dL (8.7-10.3); Iron 96 UG/DL (65-175); Total Iron Binding Capacity 326 UG/DL (228-460)
[2024-12-20 18:57] LABS: Basophils # (A) 0.07 X 10*3/uL (0.00-0.10); Eosinophils # (A) 0.24 X 10*3/uL (0.04-0.35); Eosinophils % (A) 3.4 %; HCT 44.1 % (39.6-50.0); HGB 13.8 g/dL (13.0-17.0); Lymphocytes # (A) 2.08 X 10*3/uL (0.90-5.00); Lymphocytes % (A) 29.2 %; MCH 28.6 pg (27.0-32.0); MCHC 31.3 g/dL (32.0-37.0); MCV 91.3 FL (80.0-97.0); Mean Platelet Volume 10.6 FL (9.5-12.2); Monocytes # (A) 0.62 X 10*3/uL (0.20-1.00); Monocytes % (A) 8.7 %; NRBC Per 100 WBC 0 X 10*3/uL (0.00-0.01); Neutrophils # (A) 4.08 X 10*3/uL (1.80-7.70); Neutrophils % (A) 57.3 %; Platelet Count 182 X 10*3/uL (140-440); RBC 4.83 X 10*6/uL (4.40-5.60); WBC 7.12 X 10*3/uL (4.50-10.00)
[2024-12-20 19:07] LABS: Microalbumin Creatinine Ratio <11 mg/g Cr (0-30)
== END | disposition home or self-care (01) ==
LOC: LABWHC1 12:22
PROVIDERS: ATTEND Internal Medicine Nephrology
DX: R80.9 Proteinuria, unspecified (principal); N18.30 Chronic kidney disease, stage 3 unspecified; D63.1 Anemia in chronic kidney disease; E55.9 Vitamin D deficiency, unspecified; N25.81 Secondary hyperparathyroidism of renal origin
CPT/HCPCS: 36415; 80048; 82043; 82306; 82570; 82728; 83540; 83550; 83735; 83970; 84100; 85025